=== PATIENT | female | born 1970 | race Hispanic/Latino ===

== ENCOUNTER 2018-03-05 22:57 | Emergency (ER) | payer BC ==
[2018-03-05 23:05] VITALS: RESP 18; O2SAT 100
[2018-03-06] MEDS ORDERED: Amoxicillin-Clav 875-125 mg Tab PO STA (00:08)
[2018-03-06] MEDS ORDERED: Amoxicillin-Clav 875-125 mg Tab PO ONE (00:19)
--- NOTE | 2018-03-06 00:34 | ED PDOC ---
HPI: CCC, URI, Sore Throat Time Seen by Provider: 03/05/18 23:25 Chief Complaint (Nursing): ENT Problem Chief Complaint (Provider): ENT Problem History Per: Patient History/Exam Limitations: no limitations Onset/Duration Of Symptoms: Days (x7) Current Symptoms Are (Timing): Still Present Location Of Pain: Throat Sick Contacts (Context): None Additional Complaint(s): 47 y/o female with no significant PMHx presents to the ED for evaluation of "cold symptoms" including nasal congestion, rhinorrhea and sore throat, onset one week ago. Patient reports of initially having left sided throat pain that has worsened today, thus prompting today's visit. Patient is concerned for a developing abscess located on the left side of her neck. Patient states pain is additionally associated with difficulty swallowing. Otherwise patient denies fever, drooling or muffled voice. However, patient states she feels like her voice does sound different to her. PMD: None Provided Past Medical History Reviewed: Historical Data, Nursing Documentation, Vital Signs Vital Signs: Last Vital Signs Temp 98.1 F 03/05/18 23:02 Pulse 72 03/05/18 23:02 Resp 18 03/05/18 23:02 BP 173/104 H 03/05/18 23:02 Pulse Ox 100 03/05/18 23:02 - Medical History PMH: No Chronic Diseases - Surgical History Surgical History: No Surg Hx - Family History Family History: States: Unknown Family Hx - Home Medications Home Medications: Ambulatory Orders Medication Instructions Recorded Amoxicillin/Clavulanate [Augmentin 1 tab PO BID 10 Days #20 tab 03/06/18 875 MG-125 MG] - Allergies Allergies/Adverse Reactions: Allergies Allergy/AdvReac Type Severity Reaction Status Date / Time clindamycin Allergy RASH Verified 03/05/18 23:02 Review of Systems ROS Statement: Except As Marked, All Systems Reviewed And Found Negative Constitutional: Negative for: Fever ENT: Positive for: Nose Discharge, Nose Congestion, Throat Pain, Other (Possible abscess and difficulty swallowing) Physical Exam - Reviewed Nursing Documentation Reviewed: Yes Vital Signs Reviewed: Yes - Physical Exam Appears: Positive for: Well, No Acute Distress Head Exam: Positive for: ATRAUMATIC, NORMOCEPHALIC Skin: Positive for: Normal Color, Warm, Dry Eye Exam: Positive for: Normal appearance, EOMI, PERRL ENT: Positive for: Other (Erythema to the tonsillar region on the left tonsil. No abscess or fluctuance. Normal voice) Neck: Positive for: Normal, Painless ROM Cardiovascular/Chest: Positive for: Regular Rate, Rhythm. Negative for: Murmur Respiratory: Positive for: Normal Breath Sounds. Negative for: Respiratory Distress Extremity: Positive for: Normal ROM. Negative for: Deformity Lymphatic: Positive for: Adenopathy (Tender lymphadenopathy.) Neurologic/Psych: Positive for: Alert, Oriented. Negative for: Motor/Sensory Deficits - ECG O2 Sat by Pulse Oximetry: 100 (RA) Pulse Ox Interpretation: Normal Medical Decision Making Medical Decision Making: Time: 17 A/P: Generally well appearing female with a normal voice on the ENT exam -- Differentials include strep throat vs paretonsillar cellulitis. -- Not concerned for paretonsillar abscess. -- Chlamydia/GC RNA, TMA -- Amoxicillin/Clavulanate 1 tab PO -- Decadron 10 mg PO -- Motrin 600 mg PO -- Toradol 30 mg IM -- Throat Culture -- Rapid Strep Group A Antigen 0100 Patient hypertense but patient states it always goes up when she's in pain Advised patient to see PMD upon arrival back to [facility] d/c home, very well appearing Scribe Attestation: Documented by Ilda Marquez, acting as a scribe for Carloz Silva MD Provider Scribe Attestation: All medical record entries made by the Scribe were at my direction and personally dictated by me. I have reviewed the chart and agree that the record accurately reflects my personal performance of the history, physical exam, medical decision making, and the department course for this patient. I have also personally directed, reviewed, and agree with the discharge instructions and disposition. Disposition - Clinical Impression Clinical Impression: Peritonsillar cellulitis - Disposition Referrals: [facility] [Outside] Disposition Time: 00:40 Condition: STABLE Prescriptions: Amoxicillin/Clavulanate [Augmentin 875 MG-125 MG] 1 tab PO BID 10 Days #20 tab Instructions: Peritonsillar Abscess, Adult (DC) Forms: [employer] ([place]ali)
[2018-03-06 08:01] VITALS: BP 182/95; PULSE 62; TEMP 98.2
== END 2018-03-06 00:50 | disposition home or self-care (01) ==
LOC: H.ER 22:57
DX: J36 Peritonsillar abscess (principal)
CPT/HCPCS: 87070; 87430; 87491; 87591; 96372; 99283; J1885; J8540